=== PATIENT | female | born 1995 | race African-American/Black ===

== ENCOUNTER 2018-10-05 14:42 | Emergency (ER) | payer OTHER ==
[~2018-10-05] VITALS: Ht 167.6 cm; Wt 83.1 kg
[2018-10-05 16:06] VITALS: BP 126/81
== END 2018-10-05 17:28 | disposition home or self-care (01) ==
LOC: ED 17:05
DX: O26.892 Other specified pregnancy related conditions, second trimester (principal); Z3A.18 18 weeks gestation of pregnancy; R10.31 Right lower quadrant pain; R10.32 Left lower quadrant pain; R06.00 Dyspnea, unspecified
CPT/HCPCS: 36415; 76815; 80053; 81003; 85025; 85379; 93005; 99284

== ENCOUNTER 2019-02-26 14:31 | Inpatient (IN) | payer OTHER ==
[~2019-02-26] VITALS: Ht 170.2 cm; Wt 95.4 kg
[2019-02-26] MEDS ORDERED: OXYTOCIN 30U/ 0.9% NaCL 500ML 500 ML IV ONE (18:03)
[2019-02-26] MEDS: D5%-LACTATED RINGERS 1,000 ML IV SCH (18:03)
[2019-02-26] MEDS ORDERED: NEWBORN KIT ONE (18:09)
[2019-02-26] MEDS ORDERED: MISOPROSTOL 200 MCG TABLET ONE (18:09)
[2019-02-26] MEDS ORDERED: OXYTOCIN 30U/ 0.9% NaCL 500ML 500 ML ONE (18:09)
[2019-02-26] MEDS ORDERED: LIDOCAINE 1%, 20ML ONE (18:09)
[2019-02-26] MEDS ORDERED: MISOPROSTOL 25 MCG TABLET ONE (18:09)
[2019-02-26] MEDS ORDERED: FENTANYL PF 100 MCG/2ML IV PRN (18:30)
[2019-02-26] MEDS ORDERED: SODIUM CITRATE/CITRIC ACID 30 ML UDC PO PRN (18:30)
[2019-02-26] MEDS ORDERED: METOCLOPRAMIDE 5 MG/ML, 2ML IVPush PRN (18:30)
[2019-02-26] MEDS ORDERED: TERBUTALINE 1 MG/ML, 1ML IVPush PRN (18:30)
[2019-02-26] MEDS ORDERED: MISOPROSTOL 25 MCG TABLET VG PRN (18:30)
[2019-02-26] MEDS ORDERED: TERBUTALINE 1 MG/ML, 1ML SQ PRN (18:30)
[2019-02-26] MEDS ORDERED: ONDANSETRON 2MG/ML, 2ML IVPush PRN (18:30)
[2019-02-26 18:34] LABS: BASOPHILS # (AUTO) 0.13 x10^3/uL (0-0.1); BASOPHILS % (AUTO) 1 % (0-1); EOSINOPHILS # (AUTO) 0.18 x10^3/uL (0-0.4); EOSINOPHILS % (AUTO) 2 % (1-7); LYMPHOCYTES # (AUTO) 1.57 x10^3/uL (1-3.4); LYMPHOCYTES % (AUTO) 14 % (22-44); MD NO; MEAN CORPUSCULAR HEMOGLOBIN 29.6 pg (27.0-34.8); MEAN CORPUSCULAR VOLUME 89.8 fL (80-100); MEAN PLATELET VOLUME 9.2 fL (7.4-10.4); MONOCYTES # (AUTO) 0.92 x10^3/uL (0.2-0.8); MONOCYTES % (AUTO) 8 % (2-9); NEUTROPHILS # (AUTO) 8.58 x10^3/uL (1.8-6.8); NEUTROPHILS % (AUTO) 75 % (42-75); PLATELET COUNT 206 x10^3/uL (130-400); RED BLOOD COUNT 4.21 x10^6/uL (3.82-5.3); RED CELL DISTRIBUTION WIDTH 14.3 % (9.6-15.2)
[2019-02-26] MEDS: LACTATED RINGERS 1,000 ML IV SCH (18:35)
[2019-02-26] MEDS ORDERED: SODIUM CHLORIDE FLUSH 10ML SYR IVF SCH (21:00)
[2019-02-27] MEDS ORDERED: OXYTOCIN 30U/ 0.9% NaCL 500ML 500 ML IV PRN (00:07)
[2019-02-27] MEDS ORDERED: CALCIUM CARBONATE 500 MG TAB.CHEW PO PRN (00:30)
[2019-02-27] MEDS: LACTATED RINGERS 1,000 ML IV SCH ×3 (01:06→11:52)
[2019-02-27] MEDS: D5%-LACTATED RINGERS 1,000 ML IV SCH ×3 (02:03→19:35)
[2019-02-27 04:00] VITALS: BP 117/76
[2019-02-27] MEDS ORDERED: FENTANYL/BUPIV./NS/PF 250 ML EPIDCONT SCH ×2 (05:43→12:33)
[2019-02-27] MEDS ORDERED: FENTANYL PF 500 MCG, BUPIVACAINE/PF 0.5%, 30ML 62.5 ML in SODIUM CHLORIDE 0.9% 177.5 ML EPIDCONT SCH (06:30)
[2019-02-27 07:24] VITALS: BP 113/58
[2019-02-27] MEDS ORDERED: FENTANYL PF 100 MCG/2ML ONE ×2 (07:35→10:09)
[2019-02-27] MEDS: FENTANYL PF 100 MCG/2ML IVPush PRN ×2 (07:41→10:13)
[2019-02-27] MEDS ORDERED: PREN1TAB60 PO (08:16)
[2019-02-27] MEDS ORDERED: BUPIVACAINE 0.25% ONE (11:26)
[2019-02-27] MEDS ORDERED: LACTATED RINGERS 1,000 ML IV SCH (12:33)
[2019-02-27] MEDS ORDERED: NALOXONE 0.4 MG/ML, 1ML IVPush PRN (13:00)
[2019-02-27] MEDS ORDERED: DIPHENHYDRAMINE 50 MG/ML, 1ML IVPush PRN (13:00)
[2019-02-27] MEDS ORDERED: ONDANSETRON 2MG/ML, 2ML IVPush PRN (13:00)
[2019-02-27] MEDS ORDERED: LACTATED RINGERS 1,000 ML IVBOLUS PRN (13:00)
[2019-02-27] MEDS ORDERED: EPHEDRINE 50 MG/ML, 1ML IVPush PRN (13:00)
[2019-02-27] MEDS ORDERED: CALCIUM CARBONATE 500 MG TAB.CHEW ONE (19:14)
[2019-02-27] MEDS: OXYTOCIN 30U/ 0.9% NaCL 500ML 500 ML IV SCH (21:31)
[2019-02-27] MEDS ORDERED: RHOGAM FROM BLOOD BANK 1 NOTE EA IM/IV ONE (22:00)
[2019-02-27] MEDS ORDERED: MISOPROSTOL 200 MCG TABLET PR PRN (22:00)
[2019-02-27] MEDS ORDERED: ACETAMINOPHEN 325 MG TABLET PO PRN ×2 (22:00)
[2019-02-27] MEDS ORDERED: METHYLERGONOVINE 0.2 MG/ML IM PRN (22:00)
[2019-02-27] MEDS ORDERED: DIPH,PERTUSS(ACELL),TET VAC/PF NC IM-VACC PRN (22:00)
[2019-02-27] MEDS ORDERED: CARBOPROST TROMETHAMINE 250 MCG/ML, 1ML IM PRN (22:00)
[2019-02-27] MEDS ORDERED: SIMETHICONE 80 MG CHEW TAB PO PRN (22:00)
[2019-02-27] MEDS ORDERED: MEASLES,MUMPS&RUBELLA VACC/PF 0.5 ML SQ-VACC PRN (22:00)
[2019-02-27] MEDS ORDERED: OXYcodone/APAP 5/325MG TABLET PO PRN ×2 (22:00)
[2019-02-27] MEDS ORDERED: OXYTOCIN 30U/ 0.9% NaCL 500ML 500 ML ONE (22:53)
[2019-02-27] MEDS ORDERED: ACETAMINOPHEN 325 MG TABLET ONE (23:18)
[2019-02-28 00:25] VITALS: BP 107/64
[2019-02-28] MEDS: LACTATED RINGERS 1,000 ML IV SCH ×2 (02:03→10:03)
[2019-02-28] MEDS: D5%-LACTATED RINGERS 1,000 ML IV SCH ×2 (02:03→10:03)
[2019-02-28 04:30] VITALS: BP 103/67
[2019-02-28] MEDS: IBUPROFEN 600 MG TABLET PO PRN ×2 (05:10→17:53)
[2019-02-28 05:47] LABS: MEAN CORPUSCULAR HEMOGLOBIN 29.7 pg (27.0-34.8); MEAN CORPUSCULAR HGB CONC 33.2 g/dL (32.4-35.8); MEAN CORPUSCULAR VOLUME 89.6 fL (80-100); PLATELET COUNT 182 x10^3/uL (130-400); RED BLOOD COUNT 3.96 x10^6/uL (3.82-5.3); RED CELL DISTRIBUTION WIDTH 14.3 % (9.6-15.2)
[2019-02-28 06:06] LABS: BASOPHILS # (AUTO) 0.02 x10^3/uL (0-0.1); BASOPHILS % (AUTO) 0 % (0-1); EOSINOPHILS % (AUTO) 1 % (1-7); LYMPHOCYTES # (AUTO) 1.49 x10^3/uL (1-3.4); LYMPHOCYTES % (AUTO) 8 % (22-44); MD SCAN; MONOCYTES # (AUTO) 1.52 x10^3/uL (0.2-0.8); MONOCYTES % (AUTO) 8 % (2-9); NEUTROPHILS # (AUTO) 16.29 x10^3/uL (1.8-6.8); NEUTROPHILS % (AUTO) 84 % (42-75)
[2019-02-28] MEDS: OXYTOCIN 30U/ 0.9% NaCL 500ML 500 ML IV SCH (07:31)
[2019-02-28 08:22] VITALS: BP 115/75
[2019-02-28] MEDS: DOCUSATE 100 MG CAPSULE PO PRN (08:56)
[2019-02-28] MEDS: PRENATAL VIT/IRON/FA 1 EACH TABLET PO SCH (08:56)
[2019-02-28 12:30] VITALS: BP 109/73
[2019-02-28 15:58] VITALS: BP 118/75
[2019-02-28 19:25] VITALS: BP 114/75
[2019-03-01] MEDS: DOCUSATE 100 MG CAPSULE PO PRN (07:20)
[2019-03-01] MEDS: PRENATAL VIT/IRON/FA 1 EACH TABLET PO SCH (07:21)
[2019-03-01 07:30] VITALS: BP 108/73
[2019-03-01] MEDS ORDERED: IBUP-1222 PO (15:07)
== END 2019-03-01 16:45 | disposition home or self-care (01) | DRG 807 ==
LOC: LDIP 17:58 → 2NW 02-27 23:52
PROVIDERS: ADMIT Student in an Organized Health Care Education/Training Program; ATTEND Student in an Organized Health Care Education/Training Program
PROC: 10E0XZZ Delivery of Products of Conception, External Approach (ICD-10-PCS; principal; 2019-02-27)
PROC: 3E033VJ Introduction of Other Hormone into Peripheral Vein, Percutaneous Approach (ICD-10-PCS; 2019-02-27)
PROC: 3E0R3BZ Introduction of Anesthetic Agent into Spinal Canal, Percutaneous Approach (ICD-10-PCS; 2019-02-27)
PROC: 00HU33Z Insertion of Infusion Device into Spinal Canal, Percutaneous Approach (ICD-10-PCS; 2019-02-27)
DX: O69.81X0 Labor and delivery complicated by cord around neck, without compression, not applicable or unspecified (principal); Z37.0 Single live birth; F32.9 Major depressive disorder, single episode, unspecified; O99.344 Other mental disorders complicating childbirth; O35.0XX0 Maternal care for (suspected) central nervous system malformation in fetus, not applicable or unspecified; G93.0 Cerebral cysts; Z3A.38 38 weeks gestation of pregnancy; Z91.19 Patient's noncompliance with other medical treatment and regimen; Z91.010 Allergy to peanuts
CPT/HCPCS: 36415; J7121; 82803; 85025; 86592; 86850; 86900; G0378; J3010; J2590; J7120